=== PATIENT | male | born 1960 | race Caucasian/White ===

== ENCOUNTER 2017-07-27 12:53 | Emergency (ER) | payer BC ==
[2017-07-27 13:00] VITALS: BP 144/95
[2017-07-27] MEDS ORDERED: IBUPROFEN 600 MG TABLET PO ONE (13:11)
--- NOTE | 2017-07-27 13:30 | ER Document Report ---
HPI - HPI Pain Level: 2 Notes: Patient is a 57-year-old male with a history of diabetes who presents to the ED complaining of right hand pain at his fifth metacarpal status post injury prior to arrival. Patient states that he was working on escalator when his hand got hit by a wire. 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 Patient states that he is otherwise able to tolerate the pain without difficulties. He does not want any Tylenol or Motrin. He denies any drug allergies. Pain does not radiate. No other concerns or complaints at this time. Denies any headache, fever, URI, sore throat, chest pain, palpitations, syncope, cough, shortness of breath, wheeze, dyspnea, abdominal pain, nausea/ vomiting/diarrhea, urinary retention, dysuria, hematuria, numbness/tingling, muscle paralysis/weakness, or rash. - ROS Systems Reviewed and Negative: Yes All other systems reviewed and negative Past Medical History - Social History Smoking Status: Never Smoker Family History: Reviewed & Not Pertinent Vertical Provider Document - CONSTITUTIONAL Agree With Documented VS: No - HR 96 during my exam Notes: PHYSICAL EXAMINATION: GENERAL: Well-appearing, well-nourished and in no acute distress. LUNGS: Breath sounds clear to auscultation bilaterally and equal. No wheezes rales or rhonchi. HEART: Regular rate and rhythm without murmurs, rubs, gallops. Musculoskeletal: Rt hand: + mild redness noted to the proximal 5th metacarapal area. + mild swelling. LROM to passive/active at the MCP joint primarily due to pain. Strength 4+/5 to flexion at 5th digit due to pain. N/V intact distal. + tenderness to palp of the 5th metacarpal. Extremities: No cyanosis, clubbing, or edema b/l. Peripheral pulses 2+. Capillary refill less than 3 seconds. NEUROLOGICAL: Normal speech, normal gait. Normal sensory, motor exams PSYCH: Normal mood, normal affect. SKIN: Warm, Dry, normal turgor, no rashes or lesions noted. Course - Re-evaluation Re-evalutation: 07/27/17 13:43 Patient is an afebrile, well-hydrated, 57-year-old male who presents to the ED with right hand pains, suspect contusion based on H&P. Vitals are acceptable. PE is otherwise unremarkable for any neurovascular compromise, obvious tendon/ ligament rupture, obvious fracture/dislocation, septic joint. X-ray was unremarkable for any acute pathology. Patient was noted to be tachycardic upon arrival, but during my evaluation his heart rate is at 96. Patient states that he always has a fast heart rate and sometimes wakes up in the morning with a heart rate of 110. Patient is otherwise asymptomatic. No other labs or imaging warranted at this time based on H&P. Patient is very pleasant and happy throughout his visit here with us. Recommend conservative measures for symptoms. Patient declined any Tylenol or Motrin. Recheck with your PCM in 3- 5 days. Consider consult orthopedics. Return to the ED with any worsening/ concerning symptoms otherwise as reviewed in discharge. Patient is in agreement. - Vital Signs Vital signs: Temp Pulse Resp BP Pulse Ox 98.6 F 135 H 18 144/95 H 96 07/27/17 12:59 07/27/17 12:59 07/27/17 12:59 07/27/17 12:59 07/27/17 12:59 Discharge - Discharge Clinical Impression: Right hand pain Condition: Stable Disposition: HOME, SELF-CARE Additional Instructions: Rest, Ice, Compression, Elevation Tylenol/ibuprofen as needed Light stretches daily Strength exercises as able Moist heat and massage may help F/u with your PCP in 3-5 days for a recheck Schedule an appointment with orthopedics for further evaluation and management Return to the ED with any worsening symptoms and/or development of fever, headache, chest pain, palpitations, syncope, shortness of breath, trouble breathing, abdominal pain, n/v/d, muscle weakness/paralysis, numbness/tingling, swelling, redness, or other worsening symptoms that are concerning to you. Forms: Elevated Blood Pressure Referrals: [facility] [Provider Group] - Follow up as needed
--- NOTE | 2017-07-27 13:39 | RADIOLOGY REPORT (SQ) ---
EXAM DESCRIPTION: HAND RIGHT 3 VIEWS COMPLETED DATE/TIME: 07/27/2017 1:30 pm REASON FOR STUDY: rt hand pain s/p injury COMPARISON: None. EXAM PARAMETERS: NUMBER OF VIEWS: Three views. TECHNIQUE: AP, lateral and oblique radiographic images acquired of the right hand. LIMITATIONS: None. FINDINGS: MINERALIZATION: Normal. BONES: No acute fracture or dislocation. No worrisome bone lesions. JOINTS: Joint spaces maintained. SOFT TISSUES: No metallic foreign bodies. OTHER: No other significant finding. IMPRESSION: No acute fractures identified. TECHNICAL DOCUMENTATION: JOB ID: [id number] [employer]- All Rights Reserved Reading location - IP/workstation name: [email or web address]
== END 2017-07-27 13:50 | disposition home or self-care (01) ==
LOC: ER 12:53
DX: M79.641 Pain in right hand (principal); L53.9 Erythematous condition, unspecified; M79.89 Other specified soft tissue disorders; W22.8XXA Striking against or struck by other objects, initial encounter; Y93.89 Activity, other specified
CPT/HCPCS: 99283